=== PATIENT | male | born 1985 ===

== ENCOUNTER 2019-11-15 09:02 | Emergency (ER) | payer OTHER ==
[2019-11-15 10:10] LABS: ABSOLUTE BASOPHILS # (AUTO) 0.1 10^3/uL (0.0-0.2); ABSOLUTE EOSINOPHILS # (AUTO) 0.2 10^3/uL (0.0-0.6); ABSOLUTE LYMPHOCYTES (AUTO) 1.6 10^3/uL (0.5-4.7); ABSOLUTE MONOCYTES (AUTO) 0.4 10^3/uL (0.1-1.4); ABSOLUTE NEUT (AUTO) 4.4 10^3/uL (1.7-8.2); BASOPHILS % (AUTO) 1.2 % (0-2); EOSINOPHILS % (AUTO) 2.9 % (0-6); HEMATOCRIT 43.1 % (37.9-51.0); HEMOGLOBIN 14.6 g/dL (13.5-17.0); LYMPHOCYTES % (AUTO) 23.7 % (13-45); MEAN CORPUSCULAR HEMOGLOBIN 30.8 pg (27.0-33.4); MEAN CORPUSCULAR HGB CONC 33.8 g/dL (32.0-36.0); MEAN CORPUSCULAR VOLUME 91 fl (80-97); MONOCYTES % (AUTO) 5.5 % (3-13); PLATELET COUNT 255 10^3/uL (150-450); RED BLOOD COUNT 4.73 10^6/uL (4.35-5.55); RED CELL DISTRIBUTION WIDTH 13.3 % (11.5-14.0); SEGMENTED NEUTROPHILS % (AUTO) 66.7 % (42-78); TOTAL CELLS COUNTED % (AUTO) 100 %; WHITE BLOOD COUNT 6.6 10^3/uL (4.0-10.5)
[2019-11-15 10:14] LABS: APPEARANCE,URINE CLEAR; BILIRUBIN,URINE NEGATIVE (NEGATIVE); COLOR,URINE YELLOW; GLUCOSE, URINE NEGATIVE (NEGATIVE); KETONES,URINE NEGATIVE (NEGATIVE); LEUKOCYTE ESTERASE,URINE NEGATIVE (NEGATIVE); NITRITE,URINE NEGATIVE (NEGATIVE); PROTEIN,URINE NEGATIVE (NEGATIVE); URINE SPECIFIC GRAVITY 1.009; UROBILINOGEN,URINE NEGATIVE mg/dL (<2.0)
[2019-11-15 10:17] VITALS: BP 153/79
[2019-11-15 10:28] LABS: URINE AMPHETAMINES SCREEN NEGATIVE; URINE BARBITURATES SCREEN NEGATIVE; URINE BENZODIAZEPINES SCREEN NEGATIVE; URINE COCAINE SCREEN NEGATIVE; URINE METHADONE SCREEN NEGATIVE; URINE PHENCYCLIDINE SCREEN NEGATIVE
[2019-11-15 10:30] LABS: URINE MARIJUANA (THC) SCREEN UNCONFIRMED POSITIVE
[2019-11-15 10:37] LABS: ALBUMIN 3.8 g/dL (3.5-5.0); ALKALINE PHOSPHATASE 59 U/L (38-126); ANION GAP 5 (5-19); ASPARTATE AMINO TRANSFERASE 24 U/L (17-59); BILIRUBIN,TOTAL 0.7 mg/dL (0.2-1.3); BLOOD UREA NITROGEN 12 mg/dL (7-20); CARBON DIOXIDE 24 mmol/L (22-30); CHLORIDE 108 mmol/L (98-107); GLUCOSE 98 mg/dL (75-110); TOTAL PROTEIN 6.6 g/dL (6.3-8.2)
[2019-11-15 10:41] LABS: ACETAMINOPHEN < 10 ug/mL (10-30); ALCOHOL < 10 mg/dL (NONE DETECTED); SALICYLATE < 1.0 mg/dL (2.0-20.0)
--- NOTE | 2019-11-15 11:02 | ER Document Report ---
ED Medical Screen (RME) - General Chief Complaint: Psych Problem Stated Complaint: PANIC ATTACK Time Seen by Provider: 11/15/19 10:10 Primary Care Provider: TAINA ANGELO [Primary Care Provider] - Follow up as needed - HPI Notes: 11/15/19 10:36 34-year-old male with a history of PTSD presents emergency room via ambulance for being combative and he did tell the nurse that he had a knife. Patient was on appointment for his PTSD and became combative, ambulance was called. Patient denies any SI or SI. States that he passed out yesterday and hit his head, unwitnessed event. Denies any history of passing out. Denies being on any blood thinners. Denies any fevers chills, chest pain, shortness of breath, nausea vomiting or diarrhea. Patient states he does not have a history of syncopal events. Denies any headaches. I have greeted and performed a rapid initial assessment of this patient. A comp rehensive ED assessment and evaluation of the patient, analysis of test results and completion of the medical decision making process will be conducted by additional ED providers. PHYSICAL EXAMINATION: GENERAL: Well-appearing, well-nourished and in no acute distress. HEAD: Atraumatic, normocephalic. EYES: Pupils equal round extraocular movements intact, conjunctiva are normal. NECK: Normal range of motion CV: s1, s2 regular LUNGS: No respiratory distress Musculoskeletal: Normal range of motion NEUROLOGICAL: Normal speech, normal gait. SKIN: Warm, Dry, normal turgor, no rashes or lesions noted. 1058-after performing a Medical Screening Examination, I spoke with the patient at length in regards to leaving the hospital against medical advice. I do not believe the patient should leave but the patient is alert oriented x4, understands the risks and benefits of staying and leaving including disability and . Pt understands that he can return at any time for further care and is more than welcome to do so. Pt verbalizes this understanding. 11/15/19 11:05 Physical Exam - Vital signs Vitals: Temp Pulse BP Pulse Ox 97.5 F 44 L 153/79 H 100 11/15/19 09:07 11/15/19 09:07 11/15/19 09:07 11/15/19 09:07 Course - Vital Signs Vital signs: Temp Pulse Resp BP Pulse Ox 97.5 F 44 L 153/79 H 100 11/15/19 09:07 11/15/19 09:07 11/15/19 09:07 11/15/19 09:07 - Laboratory Result Diagrams: 11/15/19 09:55 11/15/19 09:55 Laboratory results interpreted by me: 11/15/19 09:55 Sodium 136.6 L Chloride 108 H Salicylates < 1.0 L Acetaminophen < 10 L Doctor's Discharge - Discharge Referrals: [facility] [Primary [facility]] - Follow up as needed
--- NOTE | 2019-11-15 11:51 | ER Document Report ---
Doctor's Note Notes: 11/15/19 11:50 I signed up to see patient. However he had left AGAINST MEDICAL ADVICE before I had arrived in the room. He was seen and evaluated by the nurse practitioner, Emiliana Hinton. Emiliana states that she verified the patient had no evidence that he was a threat to self or others and discussed the leaving AGAINST MEDICAL ADVICE with the patient. I never saw or had any interaction with this patient.
--- NOTE | 2019-11-15 19:28 | EKG REPORT ---
SEVERITY:- OTHERWISE NORMAL ECG - SINUS BRADYCARDIA : Confirmed by: Lloyd Zapien MD 15-Nov-2019 19:28:01
== END 2019-11-15 11:20 | disposition left against medical advice (07) ==
LOC: ER 09:02
DX: F41.0 Panic disorder [episodic paroxysmal anxiety] (principal); F43.10 Post-traumatic stress disorder, unspecified; R55 Syncope and collapse; Z53.20 Procedure and treatment not carried out because of patient's decision for unspecified reasons
CPT/HCPCS: 36415; 80053; 80307; 81001; 85025; 93005; 93010; 99284